=== PATIENT | male | born 1980 | race Hispanic/Latino ===

== ENCOUNTER 2022-05-30 05:43 | Emergency (ER) | payer OTHER, SELFPAY ==
[2022-05-30] MEDS ORDERED: Acetaminophen 500 MG TAB ONE (06:24)
== END 2022-05-30 07:15 | disposition home or self-care (01) ==
LOC: NAV ERS 05:43
DX: S80.02XA Contusion of left knee, initial encounter (principal); S40.011A Contusion of right shoulder, initial encounter; F17.200 Nicotine dependence, unspecified, uncomplicated; V89.2XXA Person injured in unspecified motor-vehicle accident, traffic, initial encounter
CPT/HCPCS: 70450; 72125